=== PATIENT | female | born 1980 | race Caucasian/White ===

== ENCOUNTER 2020-05-24 09:51 | Emergency (ER) | payer MEDICAID ==
[~2020-05-24] VITALS: Ht 165.1 cm; Wt 63.6 kg
[2020-05-24 10:36] VITALS: TEMP 98.4
[2020-05-24 11:03] LABS: BASO % 0.3 % (0.0-2.0); EOS # 0.4 (0.0-0.7); EOS % 3.6 % (0-4.0); GRAN # 8.4 (1.4-6.5); GRAN % 71.1 % (42.2-75.2); HEMATOCRIT 42.5 % (37.0-47.0); HEMOGLOBIN 14.8 g/dl (12.5-16.0); LYMPH # 2.1 (1.2-3.4); LYMPH % 17.9 % (20.0-51.0); MEAN CELL VOLUME 95 fl (80.0-100.0); MEAN CORPUSCULAR HEMOGLOBIN 33 pg (27.0-31.0); MEAN CORPUSCULAR HGB CONC 35 g/dl (33.0-37.0); MEAN PLATELET VOLUME 9.7 fl (7.4-10.4); MONO # 0.8 (0.1-0.6); MONO % 6.8 % (1.7-9.3); PLATELET COUNT 327 K/mm3 (130-400); RED BLOOD COUNT 4.49 M/mm3 (4.10-5.30); REDCELL DISTRIBUTION WIDTH-CV 12.4 % (11.5-14.5)
[2020-05-24 11:14] LABS: ALBUMIN 4.3 gm/dL (3.5-5.0); BILIRUBIN,TOTAL 0.5 mg/dL (0.0-1.0); CREATININE, serum 0.55 (0.52-1.25); POTASSIUM 4.4 mmol/L (3.4-5.0); TOTAL PROTEIN 7.1 gm/dL (6.4-8.2)
[2020-05-24 12:50] LABS: COLLECTION METHOD CLEAN CATCH
[2020-05-24 13:00] LABS: MUCOUS Present /lpf; PH 7 (5-8); URINE APPEARANCE Cloudy; URINE BACTERIA Rare /hpf; URINE BILIRUBIN Negative (NEGATIVE); URINE BLOOD Negative (NEGATIVE); URINE COLOR Yellow; URINE GLUCOSE Negative (NEGATIVE); URINE KETONE Negative (NEGATIVE); URINE LEUKOCYTE ESTERASE Trace (NEGATIVE); URINE NITRATE Negative (NEGATIVE); URINE PROTEIN(semi-quant) Negative (NEGATIVE); URINE RBC 0-2 /hpf; URINE UROBILINOGEN Negative (NEGATIVE)
[2020-05-24 14:24] VITALS: BP 110/59; PULSE 80
== END 2020-05-24 14:26 | disposition home or self-care (01) ==
LOC: COL.ER 09:51
PROVIDERS: Physician Assistant
DX: R55 Syncope and collapse (principal); R10.2 Pelvic and perineal pain; F17.200 Nicotine dependence, unspecified, uncomplicated; Z32.02 Encounter for pregnancy test, result negative
CPT/HCPCS: J1885; J7030

== ENCOUNTER → 2020-08-05 | Emergency (ER) | payer MEDICAID ==
[~2020-08-05] VITALS: Ht 165.1 cm; Wt 63.2 kg
[2020-08-05 22:37] VITALS: BP 127/80; PULSE 96; TEMP 97.8
== END ==
LOC: COL.ER 22:31
DX: R06.02 Shortness of breath (principal); L50.9 Urticaria, unspecified

== ENCOUNTER 2020-10-05 15:10 | Emergency (ER) | payer MEDICAID ==
[~2020-10-05] VITALS: Ht 165.1 cm; Wt 63.6 kg
[2020-10-05 15:20] VITALS: TEMP 98
[2020-10-05 16:24] VITALS: BP 115/70; PULSE 72
== END 2020-10-05 16:25 | disposition home or self-care (01) ==
LOC: COL.ER 15:10
DX: S63.601A Unspecified sprain of right thumb, initial encounter (principal); F17.210 Nicotine dependence, cigarettes, uncomplicated; W50.0XXA Accidental hit or strike by another person, initial encounter

== ENCOUNTER 2021-02-21 08:52 | Emergency (ER) | payer MEDICAID ==
[~2021-02-21] VITALS: Ht 165.1 cm; Wt 63.6 kg
[2021-02-21 09:51] LABS: BASO % 0.6 % (0.0-2.0); EOS # 0.9 (0.0-0.7); EOS % 13.4 % (0-4.0); GRAN % 44.4 % (42.2-75.2); HEMATOCRIT 43.1 % (37.0-47.0); LYMPH # 2.2 (1.2-3.4); LYMPH % 32.8 % (20.0-51.0); MEAN CELL VOLUME 93 fl (80.0-100.0); MEAN CORPUSCULAR HEMOGLOBIN 32 pg (27.0-31.0); MEAN CORPUSCULAR HGB CONC 35 g/dl (33.0-37.0); MEAN PLATELET VOLUME 9.6 fl (7.4-10.4); MONO # 0.6 (0.1-0.6); MONO % 8.3 % (1.7-9.3); PLATELET COUNT 357 K/mm3 (130-400); RED BLOOD COUNT 4.64 M/mm3 (4.10-5.30); REDCELL DISTRIBUTION WIDTH-CV 12.6 % (11.5-14.5)
[2021-02-21 10:21] LABS: ALANINE AMINOTRANSFERASE 16 U/L (0-55); ALKALINE PHOSPHATASE 52 U/L (0-750); ANION GAP 11 mmol/L; AST,SGOT 25 U/L (5-34); BILIRUBIN,TOTAL 0.3 mg/dL (0.2-1.2); BLOOD UREA NITROGEN 11 mg/dL (7-19); CALCIUM 9.2 mg/dL (8.4-10.2); CARBON DIOXIDE 23 mEq/L (22-29); CHLORIDE 107 mmol/L (98-107); CREATININE, serum 0.72 mg/dL (0.57-1.11); GLUCOSE 95 mg/dL (70-99); SODIUM 141 mmol/L (136-145)
[2021-02-21 10:28] LABS: TROPONIN-I < 0.010 ng/mL (0.00-0.033)
[2021-02-21 10:52] LABS: INR 1.1 (0.8-3.0); PROTHROMBIN TIME 11.7 SECONDS (9.7-12.8)
[2021-02-21 12:21] VITALS: BP 114/61; PULSE 79
== END 2021-02-21 12:30 | disposition home or self-care (01) ==
LOC: COL.ER 08:52
PROVIDERS: Family Medicine
DX: R07.9 Chest pain, unspecified (principal); G43.909 Migraine, unspecified, not intractable, without status migrainosus; F17.210 Nicotine dependence, cigarettes, uncomplicated

== ENCOUNTER → 2021-10-26 | Outpatient (CLI) | payer OTHER | LOC: MC.RAD 10:04 | DX: Z12.31 Encounter for screening mammogram for malignant neoplasm of breast (principal) ==

== ENCOUNTER → 2021-11-09 | Outpatient (CLI) | payer OTHER | LOC: MC.RAD 13:45 | DX: N64.52 Nipple discharge (principal); N64.4 Mastodynia ==